=== PATIENT | male | born 1995 | race Caucasian/White ===

== ENCOUNTER 2019-04-17 10:04 | Emergency (ER) | payer SELFPAY ==
[2019-04-17] MEDS ORDERED: ACETAMINOPHEN 325 MG TABLET PO ONE (11:25)
[2019-04-17] MEDS ORDERED: LIDOCAINE 1%/EPINEPHRINE INJ 20 ML VIAL INJ ONE (11:26)
[2019-04-17] MEDS ORDERED: CEPHALEXIN 500 MG CAPSULE PO ONE (12:11)
--- NOTE | 2019-04-17 12:31 | ER Document Report ---
HPI - HPI Patient complains to provider of: abscess Time Seen by Provider: 04/17/19 10:46 Pain Level: 5 Context: 23-year-old male presents the emergency department with an abscess on his lower back that got worse over the last 4 days. Patient states that his girlfriend has been picking at it and attempted to "pop" it and it got acutely worse over the last 36 hours. Patient is in pain, patient denies any numbness or tingling of his lower extremities, denies any weakness, denies any fevers or chills, denies nausea or vomiting. No other complaints. - CONSTITUTIONAL Constitutional: DENIES: Fever, Chills Past Medical History - Social History Smoking Status: Current Every Day Smoker Chew tobacco use (# tins/day): No Frequency of alcohol use: None Drug Abuse: None Family History: None Patient has suicidal ideation: No Patient has homicidal ideation: No Renal/ Medical History: Denies: Hx Peritoneal Dialysis Vertical Provider Document - CONSTITUTIONAL Notes: PHYSICAL EXAMINATION: Reviewed vital signs and charting by RN GENERAL: Alert, interacts well. No acute distress. HEAD: Normocephalic, atraumatic. EYES: Pupils equal and round. Extraocular movements intact. ENT: Oral mucosa moist, tongue midline. NECK: Full range of motion. Trachea midline. EXTREMITIES: Moves all 4 extremities spontaneously. No edema, No cyanosis. PSYCH: Normal affect, normal mood. SKIN: Warm, dry, normal turgor. Abscess on patient's lower back at the level of approximately L3-L4 with an area of scab, very small area of fluctuance felt with area of induration approximately 2 to 3 cm around, ultrasound placed over it which showed a small fluid pocket and no evidence of vascular flow on color. - INFECTION CONTROL TRAVEL OUTSIDE OF THE [place] IN LAST 30 DAYS: No Course - Re-evaluation Re-evalutation: 04/17/19 12:35 Incision and drainage performed using scalpel. Patient tolerated procedure well after anesthetizing with lidocaine 1% with epinephrine. Patient received Tylenol 1 g prior to the procedure and I will place him on Keflex 500 mg every 6 hours for 7 days. Patient received first dose of Keflex here. Patient is stable for discharge. Strict return precautions given. - Vital Signs Vital signs: Temp Pulse Resp BP Pulse Ox 99.1 F 95 16 141/69 H 100 04/17/19 10:12 04/17/19 10:12 04/17/19 10:12 04/17/19 10:12 04/17/19 10:12 Procedures - Incision and Drainage Lower Back Type: Simple Anesthetic type: 1% Lidocaine w/epi Blade size: 11 I&D procedure: Betadine prep applied Incision Method: Incision made by scalpel Discharge - Discharge Clinical Impression: Abscess Condition: Good Disposition: HOME, SELF-CARE Additional Instructions: You were seen for an abscess that required drainage. Please clean this area with soap and water twice daily and apply a topical antibiotic. Dress the area after each cleaning. Please return if you develop fever, vomiting, the pain at the site worsens, you notice spreading redness from the area, or you have any other symptoms that are concerning to you.
[2019-04-17 13:08] VITALS: BP 114/70
== END 2019-04-17 13:05 | disposition home or self-care (01) ==
LOC: ER 10:04
PROC: 0H96XZZ Drainage of Back Skin, External Approach (ICD-10-PCS; principal; 2019-04-17)
DX: L02.212 Cutaneous abscess of back [any part, except buttock and flank] (principal); F17.200 Nicotine dependence, unspecified, uncomplicated
CPT/HCPCS: 87070; 87205; 82962; 87075; 87077; 87186; 10060; J3490; 99283